=== PATIENT | female | born 1950 | race Caucasian/White ===

== ENCOUNTER 2020-10-29 19:31 | Emergency (ER) | payer MEDICARE, OTHER | END 2020-10-29 21:08 | disposition left against medical advice (07) | LOC: ER 19:32 | DX: Z53.21 Procedure and treatment not carried out due to patient leaving prior to being seen by health care provider (principal) ==

== ENCOUNTER 2022-09-24 19:56 | Emergency (ER) | payer BC, MEDICARE ==
[~2022-09-24] VITALS: Ht 167.6 cm; Wt 75.0 kg
[2022-09-24 20:09] VITALS: BP 148/92
== END 2022-09-24 22:10 | disposition home or self-care (01) ==
LOC: ER 19:56
DX: F10.129 Alcohol abuse with intoxication, unspecified (principal); F17.200 Nicotine dependence, unspecified, uncomplicated; Y90.9 Presence of alcohol in blood, level not specified
CPT/HCPCS: 99283